=== PATIENT | female | born 1940 | race Caucasian/White ===

== ENCOUNTER → 2023-08-02 | Outpatient (CLI) | payer OTHER | END | disposition home or self-care (01) | LOC: RAH 10:05 | PROVIDERS: ATTEND Internal Medicine | DX: R05.3 Chronic cough (principal); R63.30 Feeding difficulties, unspecified | CPT/HCPCS: 74220 ==

== ENCOUNTER → 2023-08-09 | Outpatient (CLI) | payer OTHER ==
[~2023-08-09] MED LIST: GADOTERATE MEGLUMINE 10 MMOL/20 ML VIAL IV ONE
== END | disposition home or self-care (01) ==
LOC: RAH 08:34 → EDUNIT# 09:00
PROVIDERS: ATTEND Internal Medicine
DX: G93.9 Disorder of brain, unspecified (principal); R93.0 Abnormal findings on diagnostic imaging of skull and head, not elsewhere classified
CPT/HCPCS: 70553; A9575

== ENCOUNTER → 2024-10-10 | Outpatient (CLI) | payer OTHER ==
[~2024-10-10] MED LIST changes: -GADOTERATE MEGLUMINE 10 MMOL/20 ML VIAL IV ONE; +IOHEXOL-350 75 ML VIAL IV ONE
--- NOTE | 2024-10-10 11:24 | HMCIMG ---
CT ABDOMEN/PELVIS W/WO CONTRAS HISTORY: Early satiety COMPARISON: None TECHNIQUE: Multiple sequential axial images of the abdomen and pelvis were obtained from the dome of the diaphragm through symphysis pubis. Patient was given 75 cc of Omnipaque through intravenous route. Oral contrast was given. FINDINGS: No pleural effusion is seen bilaterally. There are interstitial fibrosis. There is no evidence of parenchymal disease or pulmonary nodule of the visualized lower lungs. Degenerative changes of the thoracolumbar spine are present. The heart is not enlarged. Multiple liver masses are seen throughout the liver with the largest in the right hepatic lobe measuring 3.7 x 3.6 cm. Post cholecystectomy changes are seen. No bowel obstruction is seen. There is necrotic mass noted in the right lower abdomen near the cecum measuring 4.8 x 5.6 cm suggested of neoplastic process. Spleen, adrenal glands and pancreas are unremarkable. There is no evidence of hydronephrosis bilaterally. No evidence of renal stone is seen. Fecal material is seen in the colon. There is extensive diverticulosis. There are normal size retroperitoneal and mesenteric lymph nodes. Small ascites fluid is seen. Atherosclerotic changes are present. Pelvic sidewalls are symmetric bilaterally. Bladder is well distended without wall thickening. IMPRESSION: 1. Chronic mass in the cecum/ascending colon measuring 4.8 x 5.6 cm. Multiple liver masses. No bowel obstruction is seen. Extensive diverticulosis. CT was performed with one or more following dose reduction techniques: automated exposure control, adjustment of the mA and kv according to patient's size, or use of a iterative reconstruction technique.
== END | disposition home or self-care (01) ==
LOC: RAH 09:13
PROVIDERS: ATTEND Internal Medicine
DX: K57.90 Diverticulosis of intestine, part unspecified, without perforation or abscess without bleeding (principal); R16.0 Hepatomegaly, not elsewhere classified; M47.815 Spondylosis without myelopathy or radiculopathy, thoracolumbar region; K56.41 Fecal impaction; J84.170 Interstitial lung disease with progressive fibrotic phenotype in diseases classified elsewhere; R18.8 Other ascites; I70.90 Unspecified atherosclerosis; N32.89 Other specified disorders of bladder
CPT/HCPCS: 74178; Q9967